=== PATIENT | male | born 1955 | race Caucasian/White ===

== ENCOUNTER 2024-05-15 10:28 | Inpatient (IN) | payer MEDICARE, MEDICAID ==
[2024-05-15] VITALS (34 sets, daily range): BP systolic 62–149; BP diastolic 46–126; PULSE 112–119; RESP 11–24; TEMP 36.22512–36.2512; O2SAT 91–100
[~2024-05-15] VITALS: Ht 165.1 cm; Wt 67.4 kg
[~2024-05-15 10:28] MED LIST: NALO4SPR
[2024-05-15] MEDS ORDERED: LACTATED RINGERS 1,000 ML IV SCH (10:45)
[2024-05-15] MEDS ORDERED: CEFEPIME 2GM IN DEXT 5% 100ML IV ONE (10:45)
[2024-05-15] MEDS: LACTATED RINGERS IV ONE (10:49)
[2024-05-15 10:59] LABS: CHLORIDE 99 mEq/L (98-107); INR 1.1; POTASSIUM 5.6 mEq/L (3.5-5.1); PROTHROMBIN TIME 12.2 sec (9.6-11.0); SODIUM 132 mEq/L (136-145)
[2024-05-15 11:00] LABS: CARBON DIOXIDE 21 mEq/L (21-32)
[2024-05-15 11:01] LABS: CALCIUM 7.7 mg/dL (8.7-10.4)
[2024-05-15 11:05] LABS: BASOPHILS % 0.8 % (0.0-2.0); HEMATOCRIT. 25.6 % (42.0-52.0); LYMPHOCYTES % 10.6 % (20.0-50.0); MEAN CORPUSCULAR HGB CONC 31.1 g/dL (31.0-37.0); MEAN CORPUSCULAR VOLUME 83.5 fL (80.0-94.0); MEAN PLATELET VOLUME 7.2 fl (7.4-10.4); MONOCYTES % 7.5 % (2.0-8.0); NEUTROPHILS % 81.1 % (40.0-76.0); PLATELET 554 x1000/uL (130-400); RED BLOOD CELL COUNT 3.06 mill/uL (4.7-6.1); RED CELL DISTRIBUTION WIDTH 23.1 % (11.6-14.6); WHITE BLOOD COUNT 8.7 x1000/uL (4.5-11.0)
[2024-05-15] MEDS: VANCOMYCIN 1.5GM/250ML 250 ML IV SCH (11:15)
[2024-05-15 11:25] LABS: ADD RBC MORPHOLOGY YES; DIFFERENTIAL COMMENT 1
[2024-05-15] MEDS: CEFEPIME 2GM/100ML 100 ML IV NR (11:26)
[2024-05-15] MEDS: ACETAMINOPHEN 650MG SUPP PR SCH (11:38)
[2024-05-15 11:42] LABS: GLUCOSE 158 mg/dL (70-105)
[2024-05-15 11:43] LABS: TROPONIN I HIGH SENSITIVITY 12 ng/L (3.0-53); UREA NITROGEN BLOOD 62 mg/dL (9-23)
[2024-05-15 11:44] LABS: ALANINE AMINOTRANSFERASE 13 IU/L (10-49); ALBUMIN 2.9 g/dL (3.2-4.8); ASPARTATE AMINOTRANSFERASE 73 IU/L (<34)
[2024-05-15 11:45] LABS: BILIRUBIN DIRECT 0.3 mg/dL (<=3.0); BILIRUBIN TOTAL 0.5 mg/dL (0.1-1.0); PROTEIN TOTAL 5.3 g/dL (6.0-8.3)
[2024-05-15 11:56] LABS: LACTIC ACID 2.8 mmol/L (0.4-2.0)
[2024-05-15] MEDS: NOREPINEPHRINE 8MG/250ML PMX 250 ML IV ONE (12:19)
[2024-05-15 12:28] LABS: CREATININE 1.5 mg/dL (0.6-1.3)
[2024-05-15 12:52] LABS: POTASSIUM 5.3 mEq/L (3.5-5.1)
[2024-05-15 12:53] LABS: CALCIUM 7.6 mg/dL (8.7-10.4)
[2024-05-15 12:58] LABS: CREATININE 1.4 mg/dL (0.6-1.3)
[2024-05-15 12:58] LABS: BG BASE EXCESS -3.5 mmol/L (-2.0-3.0); BG DEOXYHEMOGLOBIN 9.1 % (0.0-5.0); BG FRACTION INSPIRED OXYGEN 36; BG HCO3 ACT 21.8 mmol/L (21.0-28.0); BG OXYGEN SATURATION 90.9 % (94.0-98.0); BG OXYHEMOGLOBIN 90.9 % (94.0-98.0); BG PH 7.354 (7.350-7.450); BG SAMPLE SITE RIGHT RADIAL; BG TOTAL HEMOGLOBIN 8.9 g/dL (13.5-17.5); BG VENT MODE NASAL CANNULA
[2024-05-15 13:26] LABS: ANISOCYTOSIS 3+; PLATELET ESTIMATE INCREASED
[2024-05-15] MEDS: LIDOCAINE HCL 1% 10 MG/ML 10ML VIAL ONE (14:43)
[2024-05-15] MEDS ORDERED: LEVOFLOXACIN 250MG PREMIX 50 ML IV SCH (16:15)
[2024-05-15] MEDS ORDERED: IPRATROPIUM/ALBUTEROL 0.5-3(2.5)MG/3ML NEB HHN PRN (16:15)
[2024-05-15] MEDS: NOREPINEPHRINE 8MG/250ML PMX 250 ML IV PRN (16:36)
[2024-05-15] MEDS: SODIUM CHLORIDE 0.9% 1,000 ML IV SCH (17:52)
[2024-05-15] MEDS: LEVOFLOXACIN 750MG PREMIX 150 ML IV SCH (17:52)
[2024-05-15] MEDS: IPRATROPIUM/ALBUTEROL 0.5-3(2.5)MG/3ML NEB HHN SCH (21:13)
[2024-05-15] MEDS ORDERED: VANCOMYCIN 1.5GM/250ML 250 ML IV SCH (22:15)
[2024-05-15] MEDS: NOREPINEPHRINE 32 MG in DEXT 5% WATER 218 ML IV PRN (22:36)
[2024-05-16] VITALS (94 sets, daily range): BP systolic 87–151; BP diastolic 47–98; PULSE 101–124; RESP 10–42; TEMP 36.55848–37.28076; O2SAT 91–100
[2024-05-16 06:16] LABS: HEMATOCRIT. 23.6 % (42.0-52.0); HEMOGLOBIN. 7.6 g/dL (14.0-18.0); MEAN CORPUSCULAR HEMOGLOBIN 26.7 pg (28.0-32.0); MEAN CORPUSCULAR HGB CONC 32.4 g/dL (31.0-37.0); MEAN CORPUSCULAR VOLUME 82.5 fL (80.0-94.0); MEAN PLATELET VOLUME 6.7 fl (7.4-10.4); PLATELET 471 x1000/uL (130-400); RED BLOOD CELL COUNT 2.86 mill/uL (4.7-6.1); RED CELL DISTRIBUTION WIDTH 22.8 % (11.6-14.6); WHITE BLOOD COUNT 8.9 x1000/uL (4.5-11.0)
[2024-05-16 06:38] LABS: CHLORIDE 103 mEq/L (98-107); POTASSIUM 5.2 mEq/L (3.5-5.1); SODIUM 132 mEq/L (136-145)
[2024-05-16 06:39] LABS: CALCIUM 7.9 mg/dL (8.7-10.4); CARBON DIOXIDE 20 mEq/L (21-32)
[2024-05-16 06:44] LABS: CREATININE 1.3 mg/dL (0.6-1.3); GLUCOSE 167 mg/dL (70-105); UREA NITROGEN BLOOD 63 mg/dL (9-23)
[2024-05-16 06:47] LABS: PHOSPHORUS 3.3 mg/dL (2.5-4.9)
[2024-05-16 07:06] LABS: DIFFERENTIAL COMMENT 1
[2024-05-16] MEDS: PANTOPRAZOLE SODIUM 40 MG/VIAL IV SCH (08:52)
[2024-05-16] MEDS: SODIUM BICARBONATE IV SCH (13:08)
[2024-05-16] MEDS: SODIUM CHLORIDE 0.9% IV SCH (13:08)
[2024-05-16] MEDS: HYDROCORTISONE SOD SUCCINATE 100 MG/2 ML VIAL IV SCH (13:11)
[2024-05-16 15:04] LABS: CLARITY URINE CLOUDY (CLEAR); COLOR URINE YELLOW (YELLOW); GLUCOSE URINE NEGATIVE (NEGATIVE); KETONES URINE 1+ (NEGATIVE); LEUKOCYTE ESTERASE URINE TRACE (NEGATIVE); NITRITE URINE NEGATIVE (NEGATIVE); OCCULT BLOOD URINE 2+ (NEGATIVE); PROTEIN URINE 1+ (NEGATIVE)
[2024-05-16 15:27] LABS: COARSE GRANULAR CASTS URINE 0-5 /lpf; FINE GRANULAR CASTS URINE 0-5 /lpf; MUCUS URINE 1+ /lpf (NONE/TRACE)
[2024-05-16 15:28] LABS: BACTERIA URINE 2+; SQUAMOUS EPITHELIAL CELL URINE FEW /lpf (RARE/1+)
[2024-05-16 20:26] LABS: PLATELET ESTIMATE NORMAL
[2024-05-16] MEDS: MIDODRINE HCL 5MG TABLET PO SCH (21:43)
[2024-05-16] MEDS: CEFEPIME 1GM/50ML 50 ML IV SCH (21:43)
[2024-05-16] MEDS: MORPHINE SULFATE 2 MG/ML INJ (NOT FOR IM USE) IV NR (22:47)
[2024-05-17] VITALS (98 sets, daily range): BP systolic 67–143; BP diastolic 40–86; PULSE 103–120; RESP 12–40; TEMP 37.16964–37.2252; O2SAT 91–100
[2024-05-17 06:38] LABS: HEMATOCRIT. 22.7 % (42.0-52.0); HEMOGLOBIN. 7.2 g/dL (14.0-18.0); MEAN CORPUSCULAR HEMOGLOBIN 26.2 pg (28.0-32.0); MEAN CORPUSCULAR HGB CONC 31.7 g/dL (31.0-37.0); MEAN CORPUSCULAR VOLUME 82.6 fL (80.0-94.0); MEAN PLATELET VOLUME 7.1 fl (7.4-10.4); PLATELET 463 x1000/uL (130-400); RED BLOOD CELL COUNT 2.75 mill/uL (4.7-6.1); RED CELL DISTRIBUTION WIDTH 23.2 % (11.6-14.6); WHITE BLOOD COUNT 11.8 x1000/uL (4.5-11.0)
[2024-05-17 06:51] LABS: CHLORIDE 105 mEq/L (98-107); POTASSIUM 4.8 mEq/L (3.5-5.1); SODIUM 137 mEq/L (136-145)
[2024-05-17 06:52] LABS: CALCIUM 7.8 mg/dL (8.7-10.4); CARBON DIOXIDE 18 mEq/L (21-32)
[2024-05-17 06:57] LABS: CREATININE 1.1 mg/dL (0.6-1.3); GLUCOSE 215 mg/dL (70-105); UREA NITROGEN BLOOD 63 mg/dL (9-23)
[2024-05-17 06:59] LABS: CREATINE KINASE 388 IU/L (46-171); PHOSPHORUS 3.2 mg/dL (2.5-4.9)
[2024-05-17 07:00] LABS: THYROID STIMULATING HORMONE 1.33 uIU/mL (0.55-4.78)
[2024-05-17 07:40] LABS: DIFFERENTIAL COMMENT 1
[2024-05-17] MEDS: SODIUM BICARBONATE 8.4% 50MEQ/50ML SYR IV NR (11:08)
[2024-05-17 15:21] LABS: NUCLEATED RED BLOOD CELLS 3 /100 WBC; PLATELET ESTIMATE SLIGHTLY INCREASED
[2024-05-17] MEDS: LEVOFLOXACIN 750MG PREMIX 150 ML IV SCH (16:40)
[2024-05-17] MEDS: CEFEPIME 2GM/100ML 100 ML IV SCH (21:29)
[2024-05-18] VITALS (102 sets, daily range): BP systolic 68–155; BP diastolic 41–93; PULSE 99–119; RESP 13–34; TEMP 36.50292–37.16964; O2SAT 90–99
[2024-05-18 05:41] LABS: HEMATOCRIT. 21.8 % (42.0-52.0); MEAN CORPUSCULAR HEMOGLOBIN 26.3 pg (28.0-32.0); MEAN CORPUSCULAR HGB CONC 32.3 g/dL (31.0-37.0); MEAN CORPUSCULAR VOLUME 81.4 fL (80.0-94.0); MEAN PLATELET VOLUME 7.1 fl (7.4-10.4); PLATELET 403 x1000/uL (130-400); RED BLOOD CELL COUNT 2.67 mill/uL (4.7-6.1); RED CELL DISTRIBUTION WIDTH 23.4 % (11.6-14.6); WHITE BLOOD COUNT 13.9 x1000/uL (4.5-11.0)
[2024-05-18 05:57] LABS: CHLORIDE 104 mEq/L (98-107); POTASSIUM 4.1 mEq/L (3.5-5.1); SODIUM 137 mEq/L (136-145)
[2024-05-18 05:58] LABS: CALCIUM 7.8 mg/dL (8.7-10.4); CARBON DIOXIDE 20 mEq/L (21-32)
[2024-05-18 06:03] LABS: GLUCOSE 216 mg/dL (70-105); UREA NITROGEN BLOOD 67 mg/dL (9-23)
[2024-05-18 06:21] LABS: DIFFERENTIAL COMMENT 1
[2024-05-18 06:56] LABS: NUCLEATED RED BLOOD CELLS 1 /100 WBC
[2024-05-18 06:58] LABS: ANISOCYTOSIS 3+; PLATELET ESTIMATE SLIGHTLY INCREASED
[2024-05-18] MEDS ORDERED: NALOXONE HCL 0.4MG/ML VIAL IV PRN (07:45)
[2024-05-18] MEDS ORDERED: ACETAMINOPHEN 650MG SUPP PR NR (08:45)
[2024-05-18] MEDS: ACETAMINOPHEN 650MG SUPP PR PRN (08:53)
[2024-05-18] MEDS: HYDROCODONE/ACETAMINOPHEN 5/325MG TABLET PO PRN (10:52)
[2024-05-18] MEDS: CEFEPIME 2GM/100ML 100 ML IV SCH (13:24)
[2024-05-18] MEDS: MIDODRINE HCL 5MG TABLET PO SCH (13:24)
[2024-05-18] MEDS: VANCOMYCIN 1.25GM PMX (XELLIA) 250 ML IV NR (17:25)
[2024-05-18] MEDS: METRONIDAZOLE 500MG TABLET PO SCH (17:25)
[2024-05-18] MEDS: MORPHINE SULFATE 2 MG/ML INJ (NOT FOR IM USE) IV PRN (22:49)
[2024-05-19] VITALS (108 sets, daily range): BP systolic 78–121; BP diastolic 51–82; PULSE 92–124; RESP 11–31; TEMP 36.55848–37.11408; O2SAT 93–100
[2024-05-19] MEDS: VANCOMYCIN 750MG PMX (XELLIA) 150 ML IV SCH (05:43)
[2024-05-19 06:46] LABS: CHLORIDE 110 mEq/L (98-107); POTASSIUM 3.3 mEq/L (3.5-5.1); SODIUM 140 mEq/L (136-145)
[2024-05-19 06:47] LABS: CARBON DIOXIDE 21 mEq/L (21-32)
[2024-05-19 06:48] LABS: CALCIUM 7.4 mg/dL (8.7-10.4)
[2024-05-19 06:53] LABS: CREATININE 0.8 mg/dL (0.6-1.3); GLUCOSE 117 mg/dL (70-105); UREA NITROGEN BLOOD 59 mg/dL (9-23)
[2024-05-19 07:02] LABS: HEMATOCRIT. 21.7 % (42.0-52.0); MEAN CORPUSCULAR HEMOGLOBIN 26.2 pg (28.0-32.0); MEAN CORPUSCULAR HGB CONC 31.9 g/dL (31.0-37.0); MEAN CORPUSCULAR VOLUME 82.3 fL (80.0-94.0); PLATELET 290 x1000/uL (130-400); RED BLOOD CELL COUNT 2.64 mill/uL (4.7-6.1); RED CELL DISTRIBUTION WIDTH 23.4 % (11.6-14.6); WHITE BLOOD COUNT 11.6 x1000/uL (4.5-11.0)
[2024-05-19 07:45] LABS: DIFFERENTIAL COMMENT 1
[2024-05-19 07:47] LABS: HEMOGLOBIN. 6.9 g/dL (14.0-18.0)
[2024-05-19 08:39] LABS: NUCLEATED RED BLOOD CELLS 1 /100 WBC
[2024-05-19 08:40] LABS: ANISOCYTOSIS 3+; PLATELET ESTIMATE NORMAL
[2024-05-19] MEDS ORDERED: CALCIUM GLUCONATE 1,000 MG in DEXT 5% WATER 90 ML IV ONE (09:30)
[2024-05-19] MEDS ORDERED: KCL 20MEQ/100ML PREMIX 100 ML IV ONE (09:30)
[2024-05-19] MEDS: [UNRECOGNIZED DRUG - OTHER] IV SCH ×2 (09:52→15:04)
[2024-05-19] MEDS ORDERED: FUROSEMIDE 20MG/2ML VIAL IVP NR (12:00)
[2024-05-19] MEDS: CALCIUM GLUCONATE 1GM PREMIX 50ML IV SCH (12:12)
[2024-05-19] MEDS: POTASSIUM CHLORIDE 20MEQ/PACKET PO NR (12:22)
[2024-05-19] MEDS ORDERED: POTASSIUM CHLORIDE 20 MEQ in DEXT 5% WATER 90 ML IV ONE (14:00)
[2024-05-19] MEDS: VANCOMYCIN 750MG PREMIX 150 ML IV SCH (20:40)
[2024-05-19 23:15] LABS: HEMATOCRIT 28.3 % (42.0-52.0); HEMOGLOBIN 8.4 g/dL (14.0-18.0)
[2024-05-20] VITALS (100 sets, daily range): BP systolic 71–125; BP diastolic 47–82; PULSE 100–134; RESP 15–25; TEMP 36.55848–37.00296; O2SAT 89–99
[2024-05-20 07:31] LABS: HEMATOCRIT. 26.7 % (42.0-52.0); HEMOGLOBIN. 8.6 g/dL (14.0-18.0); MEAN CORPUSCULAR HEMOGLOBIN 26.6 pg (28.0-32.0); MEAN CORPUSCULAR HGB CONC 32.3 g/dL (31.0-37.0); MEAN CORPUSCULAR VOLUME 82.5 fL (80.0-94.0); MEAN PLATELET VOLUME 7.3 fl (7.4-10.4); PLATELET 275 x1000/uL (130-400); RED BLOOD CELL COUNT 3.23 mill/uL (4.7-6.1); RED CELL DISTRIBUTION WIDTH 21.8 % (11.6-14.6); WHITE BLOOD COUNT 12.3 x1000/uL (4.5-11.0)
[2024-05-20 07:38] LABS: DIFFERENTIAL COMMENT 1
[2024-05-20 07:42] LABS: CHLORIDE 111 mEq/L (98-107); POTASSIUM 3.5 mEq/L (3.5-5.1); SODIUM 141 mEq/L (136-145)
[2024-05-20 07:43] LABS: CARBON DIOXIDE 20 mEq/L (21-32)
[2024-05-20 07:44] LABS: CALCIUM 7.9 mg/dL (8.7-10.4)
[2024-05-20 07:48] LABS: CREATININE 0.6 mg/dL (0.6-1.3)
[2024-05-20 07:49] LABS: GLUCOSE 117 mg/dL (70-105); UREA NITROGEN BLOOD 50 mg/dL (9-23)
[2024-05-20 10:42] LABS: HEMATOCRIT. 27.3 % (42.0-52.0); HEMOGLOBIN. 8.7 g/dL (14.0-18.0); MEAN CORPUSCULAR HEMOGLOBIN 26.7 pg (28.0-32.0); MEAN CORPUSCULAR VOLUME 83.4 fL (80.0-94.0); MEAN PLATELET VOLUME 7.4 fl (7.4-10.4); PLATELET 274 x1000/uL (130-400); RED BLOOD CELL COUNT 3.27 mill/uL (4.7-6.1); RED CELL DISTRIBUTION WIDTH 21.7 % (11.6-14.6); WHITE BLOOD COUNT 13.4 x1000/uL (4.5-11.0)
[2024-05-20 10:47] LABS: DIFFERENTIAL COMMENT 1
[2024-05-20 10:48] LABS: INR 1.3
[2024-05-20 10:50] LABS: CHLORIDE 111 mEq/L (98-107); POTASSIUM 3.5 mEq/L (3.5-5.1); SODIUM 141 mEq/L (136-145)
[2024-05-20 10:51] LABS: CARBON DIOXIDE 19 mEq/L (21-32)
[2024-05-20 10:56] LABS: CREATININE 0.6 mg/dL (0.6-1.3); GLUCOSE 117 mg/dL (70-105)
[2024-05-20 10:57] LABS: UREA NITROGEN BLOOD 49 mg/dL (9-23)
[2024-05-20 10:59] LABS: PHOSPHORUS 2.6 mg/dL (2.5-4.9)
[2024-05-20] MEDS: MORPHINE SULFATE 2 MG/ML INJ (NOT FOR IM USE) IV PRN (13:04)
[2024-05-20 13:34] LABS: ANISOCYTOSIS 3+; PLATELET ESTIMATE NORMAL
[2024-05-20] MEDS: FUROSEMIDE 20MG/2ML VIAL IVP NR (14:50)
[2024-05-20 15:41] LABS: NUCLEATED RED BLOOD CELLS 4 /100 WBC; PLATELET ESTIMATE NORMAL
[2024-05-20] MEDS: LORAZEPAM 2MG/ML INJ IV NR (15:48)
[2024-05-20] MEDS: HYDROMORPHONE HCL/PF 2MG/ML INJ IV PRN (23:52)
[2024-05-21] VITALS (96 sets, daily range): BP systolic 81–151; BP diastolic 48–105; PULSE 109–133; RESP 10–21; TEMP 36.6696–37.05852; O2SAT 85–100
[2024-05-21 06:12] LABS: HEMATOCRIT. 26.6 % (42.0-52.0); HEMOGLOBIN. 8.5 g/dL (14.0-18.0); MEAN CORPUSCULAR HEMOGLOBIN 26.8 pg (28.0-32.0); MEAN CORPUSCULAR HGB CONC 32.1 g/dL (31.0-37.0); MEAN CORPUSCULAR VOLUME 83.6 fL (80.0-94.0); MEAN PLATELET VOLUME 7.6 fl (7.4-10.4); PLATELET 258 x1000/uL (130-400); RED BLOOD CELL COUNT 3.19 mill/uL (4.7-6.1); RED CELL DISTRIBUTION WIDTH 22.2 % (11.6-14.6)
[2024-05-21 06:25] LABS: CARBON DIOXIDE 18 mEq/L (21-32); CHLORIDE 114 mEq/L (98-107); POTASSIUM 3.3 mEq/L (3.5-5.1); SODIUM 143 mEq/L (136-145)
[2024-05-21 06:26] LABS: CALCIUM 7.8 mg/dL (8.7-10.4)
[2024-05-21 06:30] LABS: CREATININE 0.6 mg/dL (0.6-1.3); GLUCOSE 108 mg/dL (70-105)
[2024-05-21 06:31] LABS: UREA NITROGEN BLOOD 51 mg/dL (9-23)
[2024-05-21 06:33] LABS: PHOSPHORUS 2.5 mg/dL (2.5-4.9)
[2024-05-21 07:59] LABS: DIFFERENTIAL COMMENT 1
[2024-05-21] MEDS: IPRATROPIUM/ALBUTEROL 0.5-3(2.5)MG/3ML NEB HHN PRN (08:33)
[2024-05-21] MEDS: VANCOMYCIN 1GM/200ML PMX (BAXTER) IV SCH (08:59)
[2024-05-21] MEDS ORDERED: POTASSIUM CHLORIDE 20 MEQ in DEXT 5% WATER 90 ML IV ONE (10:30)
[2024-05-21] MEDS: KCL 10MEQ/50ML PREMIX 50 ML IV SCH (11:21)
[2024-05-21] MEDS: FUROSEMIDE 40MG/4ML VIAL IVP NR (11:21)
[2024-05-21 12:09] LABS: NUCLEATED RED BLOOD CELLS 1 /100 WBC
[2024-05-21 12:10] LABS: ANISOCYTOSIS 3+; PLATELET ESTIMATE NORMAL
[2024-05-21] MEDS: HYDROMORPHONE HCL/PF 1MG/ML INJ IV NR (16:04)
[2024-05-21] MEDS: POTASSIUM CHLORIDE 20 MEQ in DEXT 5% WATER 90 ML IV SCH (17:37)
[2024-05-22] VITALS (87 sets, daily range): BP systolic 85–145; BP diastolic 43–108; PULSE 114–134; RESP 11–39; TEMP 36.72516–37.11408; O2SAT 94–100
[2024-05-22] MEDS ORDERED: ACETYLCYSTEINE 200MG/ML 20% VIAL 4ML INH PRN (00:15)
[2024-05-22 06:14] LABS: CARBON DIOXIDE 16 mEq/L (21-32); CHLORIDE 114 mEq/L (98-107); POTASSIUM 3.9 mEq/L (3.5-5.1); SODIUM 143 mEq/L (136-145)
[2024-05-22 06:15] LABS: CALCIUM 8.5 mg/dL (8.7-10.4)
[2024-05-22 06:20] LABS: CREATININE 0.8 mg/dL (0.6-1.3); GLUCOSE 128 mg/dL (70-105); UREA NITROGEN BLOOD 58 mg/dL (9-23)
[2024-05-22 06:22] LABS: HEMATOCRIT. 27.4 % (42.0-52.0); HEMOGLOBIN. 8.7 g/dL (14.0-18.0); MEAN CORPUSCULAR HEMOGLOBIN 26.8 pg (28.0-32.0); MEAN CORPUSCULAR HGB CONC 31.8 g/dL (31.0-37.0); MEAN CORPUSCULAR VOLUME 84.4 fL (80.0-94.0); MEAN PLATELET VOLUME 7.9 fl (7.4-10.4); PHOSPHORUS 2.6 mg/dL (2.5-4.9); PLATELET 296 x1000/uL (130-400); RED BLOOD CELL COUNT 3.25 mill/uL (4.7-6.1); RED CELL DISTRIBUTION WIDTH 22.8 % (11.6-14.6); WHITE BLOOD COUNT 17.2 x1000/uL (4.5-11.0)
[2024-05-22 07:10] LABS: DIFFERENTIAL COMMENT 1
[2024-05-22 08:59] LABS: BG BASE EXCESS -8.7 mmol/L (-2.0-3.0); BG CARBOXYHEMOGLOBIN 0.3 % (0.5-1.5); BG DEOXYHEMOGLOBIN 1.8 % (0.0-5.0); BG FRACTION INSPIRED OXYGEN 32; BG HCO3 ACT 14.6 mmol/L (21.0-28.0); BG METHEMOGLOBIN 0.3 % (0.5-1.5); BG OXYGEN SATURATION 98.2 % (94.0-98.0); BG OXYHEMOGLOBIN 97.6 % (94.0-98.0); BG PCO2 23.7 mmHg (35.0-48.0); BG PH 7.408 (7.350-7.450); BG PO2 109.4 mmHg (83.0-108.0); BG SAMPLE SITE RIGHT RADIAL; BG TOTAL HEMOGLOBIN 9.1 g/dL (13.5-17.5); BG VENT MODE NASAL CANNULA
[2024-05-22 10:45] LABS: ANISOCYTOSIS 2+; PLATELET ESTIMATE NORMAL
[2024-05-22 11:54] LABS: LACTATE DEHYDROGENASE 452 IU/L (120-246)
[2024-05-22] MEDS: PHENYLEPHRINE 50 MG in DEXT 5% WATER 245 ML IV PRN (12:47)
[2024-05-22] MEDS: MEROPENEM 1G/100ML 100 ML IV SCH (16:41)
[2024-05-22] MEDS: LORAZEPAM 2MG/ML INJ IV PRN (21:45)
[2024-05-23] VITALS (83 sets, daily range): BP systolic 78–125; BP diastolic 41–78; PULSE 112–129; RESP 17–31; TEMP 36.89184–38.55864; O2SAT 91–100
[2024-05-23 06:44] LABS: CARBON DIOXIDE 14 mEq/L (21-32); CHLORIDE 115 mEq/L (98-107); HEMATOCRIT. 25.7 % (42.0-52.0); HEMOGLOBIN. 8.2 g/dL (14.0-18.0); MEAN CORPUSCULAR HEMOGLOBIN 27.1 pg (28.0-32.0); MEAN CORPUSCULAR HGB CONC 31.9 g/dL (31.0-37.0); MEAN CORPUSCULAR VOLUME 84.7 fL (80.0-94.0); PLATELET 297 x1000/uL (130-400); POTASSIUM 3.9 mEq/L (3.5-5.1); RED BLOOD CELL COUNT 3.04 mill/uL (4.7-6.1); RED CELL DISTRIBUTION WIDTH 22.9 % (11.6-14.6); SODIUM 145 mEq/L (136-145); WHITE BLOOD COUNT 18.5 x1000/uL (4.5-11.0)
[2024-05-23 06:45] LABS: CALCIUM 8.1 mg/dL (8.7-10.4)
[2024-05-23 06:49] LABS: CREATININE 0.9 mg/dL (0.6-1.3)
[2024-05-23 06:50] LABS: GLUCOSE 134 mg/dL (70-105); UREA NITROGEN BLOOD 64 mg/dL (9-23)
[2024-05-23 08:44] LABS: DIFFERENTIAL COMMENT 1
[2024-05-23 11:00] LABS: PROTEIN BODY FLUID < 2.0 gm/dL
[2024-05-23] MEDS: DEXT 5%/0.2% NACL 1,000 ML IV SCH (11:06)
[2024-05-23 13:14] LABS: BODY FLUID MONOCYTES 7 %
[2024-05-23 13:15] LABS: BODY FLUID RBC 870 /cu mm (0-2000); BODY FLUID WBC 345 /cu mm (0-200)
[2024-05-23 16:36] LABS: ANISOCYTOSIS 2+; PLATELET ESTIMATE NORMAL
[2024-05-24] VITALS (99 sets, daily range): BP systolic 79–146; BP diastolic 40–106; PULSE 81–118; RESP 9–29; TEMP 36.114–36.55848; O2SAT 84–100
[2024-05-24 06:28] LABS: BASOPHILS % 0.1 % (0.0-2.0); EOSINOPHILS % 0.1 % (0.0-5.0); HEMATOCRIT. 27.7 % (42.0-52.0); HEMOGLOBIN. 8.6 g/dL (14.0-18.0); LYMPHOCYTES % 7.8 % (20.0-50.0); MEAN CORPUSCULAR HEMOGLOBIN 26.6 pg (28.0-32.0); MEAN CORPUSCULAR HGB CONC 31.1 g/dL (31.0-37.0); MEAN CORPUSCULAR VOLUME 85.6 fL (80.0-94.0); MEAN PLATELET VOLUME 8.2 fl (7.4-10.4); MONOCYTES % 5.7 % (2.0-8.0); NEUTROPHILS % 86.3 % (40.0-76.0); PLATELET 307 x1000/uL (130-400); RED BLOOD CELL COUNT 3.24 mill/uL (4.7-6.1); RED CELL DISTRIBUTION WIDTH 23.3 % (11.6-14.6); WHITE BLOOD COUNT 21.6 x1000/uL (4.5-11.0)
[2024-05-24 06:30] LABS: CHLORIDE 116 mEq/L (98-107); POTASSIUM 3.6 mEq/L (3.5-5.1); SODIUM 144 mEq/L (136-145)
[2024-05-24 06:31] LABS: CALCIUM 7.9 mg/dL (8.7-10.4); CARBON DIOXIDE 16 mEq/L (21-32)
[2024-05-24 06:34] LABS: DIFFERENTIAL COMMENT 1
[2024-05-24 06:36] LABS: CREATININE 1.2 mg/dL (0.6-1.3); GLUCOSE 187 mg/dL (70-105); UREA NITROGEN BLOOD 72 mg/dL (9-23)
[2024-05-24] MEDS: MIDODRINE HCL 5MG TABLET NG SCH (11:32)
[2024-05-24] MEDS: SODIUM CHLORIDE 0.9% 1,000 ML IV SCH (13:15)
[2024-05-24] MEDS: LEVOFLOXACIN 500MG PREMIX 100 ML IV NR (16:44)
[2024-05-25] VITALS (97 sets, daily range): BP systolic 71–109; BP diastolic 42–72; PULSE 83–113; RESP 10–26; TEMP 35.94732–36.9474; O2SAT 93–100
[2024-05-25 06:24] LABS: CARBON DIOXIDE 16 mEq/L (21-32); CHLORIDE 115 mEq/L (98-107); POTASSIUM 3.6 mEq/L (3.5-5.1); SODIUM 142 mEq/L (136-145)
[2024-05-25 06:30] LABS: CREATININE 1.1 mg/dL (0.6-1.3); GLUCOSE 101 mg/dL (70-105); UREA NITROGEN BLOOD 71 mg/dL (9-23)
[2024-05-25 08:45] LABS: BASOPHILS % 1.4 % (0.0-2.0); EOSINOPHILS % 0.1 % (0.0-5.0); HEMATOCRIT. 28.7 % (42.0-52.0); HEMOGLOBIN. 8.7 g/dL (14.0-18.0); LYMPHOCYTES % 10.7 % (20.0-50.0); MEAN CORPUSCULAR HEMOGLOBIN 26.5 pg (28.0-32.0); MEAN CORPUSCULAR HGB CONC 30.2 g/dL (31.0-37.0); MEAN CORPUSCULAR VOLUME 87.9 fL (80.0-94.0); MEAN PLATELET VOLUME 8.5 fl (7.4-10.4); MONOCYTES % 4.4 % (2.0-8.0); NEUTROPHILS % 83.4 % (40.0-76.0); PLATELET 320 x1000/uL (130-400); RED BLOOD CELL COUNT 3.27 mill/uL (4.7-6.1); RED CELL DISTRIBUTION WIDTH 22.9 % (11.6-14.6); WHITE BLOOD COUNT 25.3 x1000/uL (4.5-11.0)
[2024-05-25 08:47] LABS: DIFFERENTIAL COMMENT 1
[2024-05-25 08:49] LABS: ADD RBC MORPHOLOGY NO
[2024-05-25] MEDS: SODIUM CHLORIDE 0.9% 500 ML IV ONE (09:59)
[2024-05-25] MEDS: MIDODRINE HCL 5MG TABLET PO SCH (11:23)
[2024-05-25] MEDS: HYDROCORTISONE SOD SUCCINATE 100 MG/2 ML VIAL IV SCH (14:17)
[2024-05-25] MEDS: HYDROMORPHONE HCL/PF 1MG/ML INJ IV PRN (21:07)
[2024-05-26] VITALS (72 sets, daily range): BP systolic 62–105; BP diastolic 36–64; PULSE 86–113; RESP 15–33; TEMP 35.8362–36.3918; O2SAT 88–99
[2024-05-26] MEDS: PHENYLEPHRINE 100 MG in DEXT 5% WATER 240 ML IV PRN (04:25)
[2024-05-26 07:37] LABS: HEMOGLOBIN. 8.9 g/dL (14.0-18.0); MEAN CORPUSCULAR HEMOGLOBIN 26.5 pg (28.0-32.0); MEAN CORPUSCULAR HGB CONC 29.6 g/dL (31.0-37.0); MEAN CORPUSCULAR VOLUME 89.6 fL (80.0-94.0); MEAN PLATELET VOLUME 8.7 fl (7.4-10.4); PLATELET 323 x1000/uL (130-400); RED BLOOD CELL COUNT 3.35 mill/uL (4.7-6.1); RED CELL DISTRIBUTION WIDTH 23.8 % (11.6-14.6)
[2024-05-26 07:40] LABS: POTASSIUM 4.2 mEq/L (3.5-5.1)
[2024-05-26 07:41] LABS: DIFFERENTIAL COMMENT 1
[2024-05-26 07:46] LABS: CREATININE 1.3 mg/dL (0.6-1.3)
[2024-05-26] MEDS ORDERED: LORAZEPAM 2MG/ML INJ IV PRN (11:15)
[2024-05-26 11:24] LABS: ANISOCYTOSIS 3+; HYPOCHROMASIA 1+; NUCLEATED RED BLOOD CELLS 3 /100 WBC; PLATELET ESTIMATE NORMAL
[2024-05-26] MEDS ORDERED: MEROPENEM 1G/100ML IV SCH (21:00)
[2024-05-27] VITALS: BP 58/22; PULSE 88; RESP 20; O2SAT 97
[2024-05-27 02:00] VITALS: BP 54/25; PULSE 86; RESP 22; O2SAT 98
[2024-05-27 04:00] VITALS: BP 54/24; PULSE 88; RESP 21; O2SAT 99
== END 2024-05-27 05:40 | DRG 871 ==
LOC: ER 10:28 → CVICU 12:27 → EDBEDREQSVC 12:36 → EDBEDREQTM 12:37 → EDBEDREQ 12:37 → 6EST 05-26 23:47
PROVIDERS: ADMIT Internal Medicine; ATTEND Internal Medicine
PROC: 05HY33Z Insertion of Infusion Device into Upper Vein, Percutaneous Approach (ICD-10-PCS; 2024-05-15)
PROC: B54MZZA Ultrasonography of Right Upper Extremity Veins, Guidance (ICD-10-PCS; 2024-05-15)
PROC: 0H9LXZZ Drainage of Left Lower Leg Skin, External Approach (ICD-10-PCS; 2024-05-16)
PROC: 30233N1 Transfusion of Nonautologous Red Blood Cells into Peripheral Vein, Percutaneous Approach (ICD-10-PCS; principal; 2024-05-19)
PROC: 0W993ZZ Drainage of Right Pleural Cavity, Percutaneous Approach (ICD-10-PCS; 2024-05-23)
DX: A41.9 Sepsis, unspecified organism (principal); E43 Unspecified severe protein-calorie malnutrition; G93.41 Metabolic encephalopathy; R65.21 Severe sepsis with septic shock; J18.9 Pneumonia, unspecified organism; J96.01 Acute respiratory failure with hypoxia; M84.48XA Pathological fracture, other site, initial encounter for fracture; C79.51 Secondary malignant neoplasm of bone; E87.1 Hypo-osmolality and hyponatremia; E87.20 Acidosis, unspecified; N39.0 Urinary tract infection, site not specified; E87.3 Alkalosis; N17.9 Acute kidney failure, unspecified; J91.8 Pleural effusion in other conditions classified elsewhere; Z66 Do not resuscitate; C61 Malignant neoplasm of prostate; E87.5 Hyperkalemia; D63.8 Anemia in other chronic diseases classified elsewhere; S90.31XA Contusion of right foot, initial encounter; S90.32XA Contusion of left foot, initial encounter; E78.00 Pure hypercholesterolemia, unspecified; S80.822A Blister (nonthermal), left lower leg, initial encounter; K21.9 Gastro-esophageal reflux disease without esophagitis; I11.0 Hypertensive heart disease with heart failure; I50.9 Heart failure, unspecified; R62.7 Adult failure to thrive; L89.150 Pressure ulcer of sacral region, unstageable; Z74.01 Bed confinement status; Z51.5 Encounter for palliative care; Z88.0 Allergy status to penicillin; Z68.24 Body mass index [BMI] 24.0-24.9, adult; Z82.49 Family history of ischemic heart disease and other diseases of the circulatory system; X58.XXXA Exposure to other specified factors, initial encounter; Y93.89 Activity, other specified; Y92.89 Other specified places as the place of occurrence of the external cause; Y99.8 Other external cause status
CPT/HCPCS: 32555; 36415; 36573; 36600; 70490; 71045; 71275; 76604; 80048; 80076; 80202; 81003; 82330; 82375; 82533; 82550; 82805; 83605; 83615; 83735; 83986; 84100; 84145; 84443; 84484; 85014; 85018; 85025; 85049; 85379; 85384; 86850; 86900; 86920; 92610; 93005; 93880; 93970; 94640; 94664; 98960; 99291; C1725; J0610; J0692; J1171; J1720; J1940; J1956; J2060; J2185; J2270; J2470; J3370; J3480; J3490; J7030; J7060; J7120; P9016